=== PATIENT | male | born 1985 | race Caucasian/White ===

== ENCOUNTER 2024-09-09 07:05 | Day surgery (SDC) | payer MEDICAID, SELFPAY ==
[2024-09-08 10:33] VITALS: BMI 19.0
[2024-09-09] VITALS (18 sets, daily range): BP systolic 105–127; BP diastolic 69–104; PULSE 87–107; RESP 13–19; TEMP 36.4–36.7; O2SAT 97–100; BMI 18.3
[2024-09-09] MEDS: DiphenhydrAMINE INJ 50 MG/ML VIAL 25 MG IV (08:46)
[2024-09-09] MEDS: fentaNYL CIT INJ 50 mCg/ML AMP 2ML (ASD USE ONLY) IV (09:28)
[2024-09-09] MEDS: MIDAZOLAM INJ 1 MG/ML VIAL 2 ML (ASD USE ONLY) 2 MG IV (09:29)
--- NOTE | 2024-09-09 10:00 | SUR.PHASEII ---
0948: Pt received for recovery. Pt groggy, sedated. Easily aroused with eye opening then drifts back to sleep. Resp even, unlabored. VS stable. No c/o pain, discomfort.
--- NOTE | 2024-09-09 10:57 | SUR.PHASEII ---
1020: Pt more awake, alert. Sitting up tolerating po fluids with no difficulty swallowing and no n/a. 1037: Pt fully awake, oriented x3. Pt assisted to restroom. Ambulation steady. Pt and father stated understanding of discharge instructions. Pt discharged from [facility] in stable condition.
== END 2024-09-09 10:37 | disposition home or self-care (01) ==
PROVIDERS: PCP Family Medicine; Referring Provider Internal Medicine Gastroenterology; Visit Provider Internal Medicine Gastroenterology
PROC: 0DBE8ZX Excision of Large Intestine, Via Natural or Artificial Opening Endoscopic, Diagnostic (ICD-10-PCS; CPT 45380; principal; 2024-09-09 07:30)
PROC: (CPT 43239; 2024-09-09 07:30)
DX: K51.911 Ulcerative colitis, unspecified with rectal bleeding (principal); K64.9 Unspecified hemorrhoids; K29.71 Gastritis, unspecified, with bleeding; K29.51 Unspecified chronic gastritis with bleeding; K31.89 Other diseases of stomach and duodenum; K63.89 Other specified diseases of intestine; K62.89 Other specified diseases of anus and rectum
CPT/HCPCS: 45380; 43239; A4217; J1200; J2250; J3010

== ENCOUNTER 2025-08-04 10:30 | Day surgery (SDC) | payer MEDICAID, SELFPAY ==
[2025-08-04] VITALS (14 sets, daily range): BP systolic 106–131; BP diastolic 73–98; PULSE 59–96; RESP 12–22; TEMP 36.7–36.9; O2SAT 92–100; BMI 19.6
[2025-08-04] MEDS: RINGERS LACTATED 500 ML 500 ML 20 ML IV (12:44)
[2025-08-04] MEDS: MIDAZOLAM INJ 1 MG/ML VIAL 2 ML (ASD USE ONLY) 2 MG IVP (12:45)
[2025-08-04] MEDS: fentaNYL CIT INJ 50 mCg/ML AMP 2ML (ASD USE ONLY) IVP (12:46)
== END 2025-08-04 13:44 | disposition home or self-care (01) ==
PROVIDERS: PCP Physician Assistant; Referring Provider Internal Medicine Gastroenterology; Visit Provider Internal Medicine Gastroenterology
PROC: 0DBE8ZX Excision of Large Intestine, Via Natural or Artificial Opening Endoscopic, Diagnostic (ICD-10-PCS; CPT 45380; principal; 2025-08-04 12:30)
DX: K51.011 Ulcerative (chronic) pancolitis with rectal bleeding (principal); K64.9 Unspecified hemorrhoids; K62.89 Other specified diseases of anus and rectum
CPT/HCPCS: 45380; A4217; A4649; J1200; J2250; J3010; J7120